=== PATIENT | female | born 1970 | race African-American/Black ===

== ENCOUNTER 2016-11-25 20:01 | Emergency (ER) | payer MEDICAID ==
[~2016-11-25] VITALS: Ht 170.2 cm; Wt 85.7 kg
[2016-11-25 20:15] VITALS: BP 138/92
--- NOTE | 2016-11-25 20:21 | Emergency Room Report ---
History of Present Illness General Chief Complaint: Lower Extremity Injury Source: Patient Present Illness HPI Patient twisted her ankle in [place] yesterday and flew home. Now there is a lot of swelling there. She took Motrin this morning. She's ambulatory but has pain with this. Pain is 7-8/10, dorsolateral aspect of ankle/foot, not radiate. No calf tenderness. No numbness. Not . No somatic complaints. Allergies: Coded Allergies: No Known Allergies (Unverified , 11/25/16) Patient History Past Medical History: see triage record Social History: Denies: smoking - former Social History Narrative supposed to work tomorrow Last Menstrual Period: N/A Reviewed Nursing Documentation: PMH: Agreed, PSxH: Agreed Nursing Documentation-PMH Hx Hypertension: Yes Review of Systems Constitutional: Denies: fever Respiratory: Denies: shortness of breath Musculoskeletal: Reports: see HPI Skin: Denies: rash Neurological: Denies: see HPI Physical Exam Vital Signs Date Time Temp Pulse Resp B/P Pulse Ox O2 Delivery O2 Flow Rate FiO2 11/25/16 20:08 98.4 62 14 154/102 98 Room Air Sp02 EP Interpretation: reviewed, normal General Appearance: well appearing, no apparent distress, GCS 15 Head: normocephalic, atraumatic Eyes: bilateral eye PERRL, bilateral eye normal inspection ENT: hearing grossly normal, normal voice, moist mucus membranes Neck: full range of motion, supple Respiratory: no respiratory distress, speaking full sentences Cardiovascular #2: 2+ dorsalis pedis (R) Musculoskeletal: digits/nails normal, normal range of motion, no calf tenderness, swelling, other - Dorsolateral tendeness, ligaments stable, no point tenderness Neurologic: alert, motor strength/tone normal, sensory intact Psychiatric: mood/affect normal Skin: no rash Medical Decision Making Diagnostic Impression: Primary Impression: Right ankle sprain Qualified Codes: S93.491A - Sprain of other ligament of right ankle, initial encounter ER Course Patient presents with ankle pain and swelling after twisting this yesterday. Differential includes fracture, strain and contusion. Bilateral ankle rules is less likely that she has a break however due to the large amount of soft tissue swelling consideration for fracture is there. Ligaments are stable. Motrin is given for pain and x-rays were obtained. X-rays reveal soft tissue swelling and no fracture. Air splint is applied by the techs. By itself, air cast not support area of injury - anabell applied. Position and tension now excellent and the neurovascular checked by me is normal. Patient stable for outpatient observation and treatment. Other X-Ray Diagnostic Results # of Views/Limited Vs Complete: 3 View EP Interpretation: Yes Interpretation: no fractures, no dislocation, other - STS Indication: Pain - and swelling Impression: Other Interpreting ER Provider: prieto Last Vital Signs Date Time Temp Pulse Resp B/P Pulse Ox O2 Delivery O2 Flow Rate FiO2 11/25/16 21:12 98.2 88 15 138/92 99 Room Air Status: improved Disposition: HOME, SELF-CARE Condition: Improved Scripts Tramadol Hcl* (ULTRAM*) 50 Mg Tablet 50 MG ORAL Q6H Y for For Pain, #10 TAB 0 Refills Prov: Agustin Alejandre M.D. 11/25/16 Ibuprofen* (MOTRIN*) 600 Mg Tablet 600 MG ORAL Q6H Y for For Pain, #20 TAB Prov: Agustin Alejandre M.D. 11/25/16 Agustin Alejandre M.D. Nov 25, 2016 20:20
[2016-11-25] MEDS ORDERED: IBUPROFEN600 MG ORAL (20:52)
[2016-11-25] MEDS ORDERED: TRAMADOL HCL50 MG ORAL (20:52)
[2016-11-25 21:12] VITALS: BP 138/92
--- NOTE | 2016-11-27 08:23 | Diagnostic Imaging Report ---
Indication: TRAUMA, pain status post fall Technique: 3 views of the right ankle Comparison: none Findings: No acute fractures. No dislocations. Joint spaces are preserved. Normal mineralization. No radiopaque foreign body. Soft tissue swelling overlies the lateral malleolus Impression: Evidence of lateral soft tissue injury. No acute bony trauma
== END 2016-11-25 21:12 | disposition home or self-care (01) ==
LOC: EMR 20:20
DX: S93.491A Sprain of other ligament of right ankle, initial encounter (principal); X58.XXXA Exposure to other specified factors, initial encounter; Y93.9 Activity, unspecified; Y92.9 Unspecified place or not applicable; I10 Essential (primary) hypertension
CPT/HCPCS: 99284

== ENCOUNTER 2018-03-17 22:25 | Emergency (ER) | payer MEDICAID ==
[~2018-03-17] VITALS: Ht 175.3 cm; Wt 81.6 kg
[~2018-03-17 22:25] MED LIST: IBUPROFEN600 MG ORAL; TRAMADOL HCL50 MG ORAL
[2018-03-17 22:40] VITALS: BP 168/95
[2018-03-17] MEDS ORDERED: Fluorescein Strips ONE (22:58)
[2018-03-17] MEDS ORDERED: Tetracaine 0.5% Opth 4ml Soln ONE (22:58)
[2018-03-17] MEDS ORDERED: LET 3ml Soln TOPIC ONE (23:00)
[2018-03-17] MEDS ORDERED: Fluorescein Strips LEFT EYE ONE (23:00)
[2018-03-17] MEDS ORDERED: POLYTRIM OP SOL10 ML OPHTHALM (23:07)
--- NOTE | 2018-03-17 23:07 | Emergency Room Report ---
History of Present Illness General Chief Complaint: Eye Problems Source: Patient Present Illness HPI Is a 47-year-old female who presents with chief point left eye pain. Onset for about day and half. Keep getting worse. She felt her something there. She's been scratching at this this morning. Worse with lights. Some discharge. No nausea no vomiting. No fever or chills. Does have tearing. Does not wear contacts. Allergies: Coded Allergies: No Known Allergies (Unverified , 11/25/16) Patient History Past Medical History: see triage record, old chart reviewed Past Surgical History: none Pertinent Family History: none Now: No Immunizations: other Reviewed Nursing Documentation: PMH: Agreed; PSxH: Agreed Nursing Documentation-PMH Hx Hypertension: Yes Review of Systems Eye: Reports: eye pain; Denies: blurred vision ENT: Denies: ear pain, nose congestion, throat swelling Respiratory: Denies: cough, shortness of breath Cardiovascular: Denies: chest pain, palpitations Gastrointestinal: Denies: abdominal pain, diarrhea, nausea, vomiting Musculoskeletal: Denies: back pain, joint pain Skin: Denies: rash Neurological: Denies: headache, numbness Endocrine: Denies: increased thirst, increased urine Hematologic/Lymphatic: Denies: easy bruising All Other Systems: negative except mentioned in HPI Physical Exam Vital Signs Date Time Temp Pulse Resp B/P (MAP) Pulse Ox O2 Delivery O2 Flow Rate FiO2 03/17/18 22:27 98.6 75 18 176/100 98 Room Air 98.6 vitals with high blood pressure Sp02 EP Interpretation: reviewed, normal General Appearance: well appearing, no apparent distress, alert Head: normocephalic, atraumatic Eyes: left eye other - Left eye with injected conjunctiva and sclera. There is a whitish/yellowish discharge. Florentine stain showed cornea abrasion at the 6 7 o'clock position. No Lexi sign. No foreign body.; bilateral eye PERRL, bilateral eye EOMI ENT: hearing grossly normal, normal pharynx Neck: full range of motion, supple, no meningismus Respiratory: chest non-tender, lungs clear, normal breath sounds Cardiovascular #1: regular rate, rhythm, no murmur Gastrointestinal: normal bowel sounds, non tender, no mass, no organomegaly, no bruit, non-distended Musculoskeletal: back normal, gait/station normal, normal range of motion Psychiatric: mood/affect normal Skin: warm/dry Medical Decision Making Diagnostic Impression: Primary Impression: Conjunctivitis, left eye Qualified Codes: H10.32 - Unspecified acute conjunctivitis, left eye Additional Impression: Corneal abrasion, left Qualified Codes: S05.02XA - Injury of conjunctiva and corneal abrasion without foreign body, left eye, initial encounter ER Course Patient with a conjunctivitis and now cornea abrasion secondary to rubbing her eyes. No foreign body. No proptosis or orbital cellulitis. We'll discharge home. Last Vital Signs Date Time Temp Pulse Resp B/P (MAP) Pulse Ox O2 Delivery O2 Flow Rate FiO2 03/17/18 22:27 98.6 75 18 176/100 98 Room Air 98.6 Status: improved Disposition: HOME, SELF-CARE Condition: Stable Scripts Polymyxin/Trimethoprim (Polytrim Eye Drops) 10 Ml Drops 2 DROP OPHTHALM THREE TIMES A DAY, #1 EA Instill in affected eye for 7 days Prov: Jose Ash MD 03/17/18 Patient Instructions: Bacterial Conjunctivitis, [id number] Additional Instructions: Follow-up with your doctor in 7 days. Return if worse. Do not rub eyes. Treat both eyes. Jose Ash MD Mar 17, 2018 23:07
[2018-03-17] MEDS ORDERED: Tetracaine 0.5% Opth 4ml Soln LEFT EYE ONE (23:15)
[2018-03-17 23:23] VITALS: BP 168/95
== END 2018-03-17 23:23 | disposition home or self-care (01) ==
LOC: EMR 22:43
DX: H10.9 Unspecified conjunctivitis (principal); S05.02XA Injury of conjunctiva and corneal abrasion without foreign body, left eye, initial encounter; X58.XXXA Exposure to other specified factors, initial encounter; Y92.9 Unspecified place or not applicable; I10 Essential (primary) hypertension
CPT/HCPCS: 99283